=== PATIENT | male | born 1975 | race Caucasian/White ===

== ENCOUNTER 2016-07-06 07:26 | Emergency (ER) | payer MEDICAID ==
[2016-07-06 07:32] VITALS: RESP 18; TEMP 98; O2SAT 99
[2016-07-06] MEDS ORDERED: Sodium Chloride 0.9% 1,000 ML IV STA (07:50)
--- NOTE | 2016-07-06 08:03 | ED PDOC ---
HPI: General Adult Time Seen by Provider: 07/06/16 07:37 Chief Complaint (Nursing): Flu-like Symptoms History Per: Patient History/Exam Limitations: no limitations Onset/Duration Of Symptoms: Hrs Current Symptoms Are (Timing): Still Present Severity: Mild Additional Complaint(s): 40-year-old male, PMHx includes Diabetes (on Glucophage), presents to the emergency department with complaints of body aches, sore throat, nausea, nasal congestion and rhinorrhea x2 days. Patient states sick contacts at home are children. Denies fever, vomiting, diarrhea, shortness of breath, or chest pain. No other complaints at this time. No vision changes, abd pain, headaches, dizziness. Past Medical History Reviewed: Historical Data, Nursing Documentation, Vital Signs Vital Signs: Last Vital Signs Temp 98.0 F 07/06/16 07:31 Pulse 96 H 07/06/16 07:31 Resp 18 07/06/16 07:31 BP 143/87 07/06/16 07:31 Pulse Ox 99 07/06/16 08:15 - Medical History PMH: Diabetes (Type II), HTN, Hypercholesterolemia - Family History Family History: States: Unknown Family Hx - Living Arrangements Living Arrangements: With Family - Social History Current smoker - smoking cessation education provided: No Alcohol: None Drugs: Denies - Immunization History Hx Tetanus Toxoid Vaccination: No Hx Influenza Vaccination: No Hx Pneumococcal Vaccination: No - Home Medications Home Medications: Ambulatory Orders Medication Instructions Recorded Oseltamivir Phosphate [Tamiflu] 75 mg PO BID #10 cap 07/08/14 Ciprofloxacin HCl/Dexameth 4 drop AD BID #1 bottle 06/02/15 [Ciprodex Otic Suspension] - Allergies Allergies/Adverse Reactions: Allergies Allergy/AdvReac Type Severity Reaction Status Date / Time No Known Allergies Allergy Verified 06/02/15 19:01 Review of Systems ROS Statement: Except As Marked, All Systems Reviewed And Found Negative Constitutional: Negative for: Fever ENT: Positive for: Nose Discharge, Throat Pain Cardiovascular: Negative for: Chest Pain, Palpitations Respiratory: Negative for: Cough, Shortness of Breath Gastrointestinal: Positive for: Nausea. Negative for: Vomiting Musculoskeletal: Positive for: Other (bodyaches). Negative for: Back Pain Skin: Negative for: Rash Neurological: Negative for: Weakness, Numbness, Headache, Dizziness Physical Exam - Reviewed Nursing Documentation Reviewed: Yes Vital Signs Reviewed: Yes - Physical Exam Appears: Positive for: Non-toxic, No Acute Distress Head Exam: Positive for: ATRAUMATIC, NORMOCEPHALIC Skin: Positive for: Warm, Dry. Negative for: Rash Eye Exam: Positive for: Normal appearance, EOMI, PERRL ENT: Positive for: Nasal Congestion. Negative for: Pharyngeal Erythema, Tonsillar Exudate, Tonsillar Swelling Neck: Positive for: Normal, Painless ROM, Supple Cardiovascular/Chest: Positive for: Regular Rate, Rhythm. Negative for: Edema Respiratory: Positive for: Normal Breath Sounds. Negative for: Accessory Muscle Use Gastrointestinal/Abdominal: Positive for: Normal Exam, Bowel Sounds, Soft. Negative for: Tenderness Back: Positive for: Normal Inspection. Negative for: L CVA Tenderness, R CVA Tenderness Extremity: Positive for: Normal ROM. Negative for: Tenderness, Pedal Edema, Calf Tenderness Neurologic/Psych: Positive for: Alert, electronics supervisor II-XII, Oriented - Laboratory Results Result Diagrams: 07/06/16 08:22 07/06/16 08:22 Interpretation Of Abn Labs: 316 glucose, mild elevated wbc - ECG O2 Sat by Pulse Oximetry: 99 Pulse Ox Interpretation: Normal - Progress ED Course And Treament: 1040: Stable. AAOx3. Pain free. FU with pcp. Hyperglycemia, likely some correction with fluids. URI. Medical Decision Making Medical Decision Making: Impression body aches, nausea, sore throat, rhinorrhea and leg cramping. Plan * CMP, Lipase * CBC * IVF, Toradol, Zofran * Influenza AB * Rapid Strep * Reassess and Disposition Scribe Attestation: Documented by Ebonie Hollins, acting as a scribe for Harmeet Salas MD Provider Scribe Attestation: All medical record entries made by the Scribe were at my direction and personally dictated by me. I have reviewed the chart and agree that the record accurately reflects my personal performance of the history, physical exam, medical decision making, and the department course for this patient. I have also personally directed, reviewed, and agree with the discharge instructions and disposition. Disposition - Clinical Impression Clinical Impression: Hyperglycemia, URI (upper respiratory infection) - Patient ED Disposition Is Patient to be Admitted: No Counseled Patient/Family Regarding: Studies Performed, Diagnosis, Need For Followup - Disposition Referrals: [facility] [Outside] - 07/07/16 Disposition: Routine/Home Disposition Time: 10:41 Condition: STABLE Additional Instructions: Return if not better in 3 days. Instructions: Upper Respiratory Infection (ED), Diabetic Hyperglycemia (ED) Forms: [facility] ED School/Work Excuse
[2016-07-06 08:44] LABS: BASO % 0.2 % (0.0-2.0); EOS # 0.4 K/uL (0.0-0.7); EOS % 3.1 % (0.0-4.0); HEMATOCRIT 40.4 % (35.0-51.0); LYMPH # 3.2 K/uL (1.0-4.3); LYMPH % 25.7 % (20.0-40.0); MEAN CELL VOLUME 85.2 fl (80.0-94.0); MEAN CORPUSCULAR HEMOGLOBIN 29.7 pg (27.0-31.0); MEAN CORPUSCULAR HGB CONC 34.9 g/dL (33.0-37.0); MEAN PLATELET VOLUME 9.4 fl (7.2-11.7); MONO # 0.8 K/uL (0.0-0.8); MONO % 6.7 % (0.0-10.0); NEUT # 8.1 K/uL (1.8-7.0); NEUT % 64.3 % (50.0-75.0); RED CELL DISTRIBUTION WIDTH 12.7 % (11.5-14.5); WHITE BLOOD COUNT 12.6 K/uL (4.8-10.8)
[2016-07-06 08:56] LABS: ALB/GLOB RATIO 1.3 (1.0-2.1); ALKALINE PHOSPHATASE 135 U/L (38-126); ALT/SGPT 29 U/L (21-72); AST/SGOT 26 U/L (17-59); BILIRUBIN,TOTAL 0.7 mg/dl (0.2-1.3); BLOOD UREA NITROGEN 22 mg/dl (9-20); CALCIUM 9.6 mg/dL (8.4-10.2); CARBON DIOXIDE 26 mmol/L (22-30); CHLORIDE 101 mmol/L (98-107); GFR AFRICAN-AMERICAN > 60; GLUCOSE,RANDOM 316 mg/dL (75-110); LIPASE 83 U/L (23-300); POTASSIUM 4.7 MMOL/L (3.6-5.0); SODIUM 141 mmol/l (132-148); TOTAL PROTEIN 7.3 G/DL (6.3-8.2)
[2016-07-06 11:53] VITALS: BP 140/82; PULSE 89
== END 2016-07-06 11:03 | disposition home or self-care (01) ==
LOC: H.ER 07:26
DX: J06.9 Acute upper respiratory infection, unspecified (principal); E11.65 Type 2 diabetes mellitus with hyperglycemia; E78.00 Pure hypercholesterolemia, unspecified; R11.0 Nausea

== ENCOUNTER 2016-12-02 10:34 | Emergency (ER) | payer MEDICAID ==
[2016-12-02 10:41] VITALS: PULSE 97; TEMP 98; O2SAT 99
[2016-12-02 10:42] VITALS: BMI 34.0
[2016-12-02] MEDS ORDERED: Sodium Chloride 0.9% 1,000 ML IV STA (11:30)
[2016-12-02] MEDS ORDERED: Insulin Regular 100 units/ml IVP ONE (11:30)
[2016-12-02 12:05] LABS: RBC URINE 2 /hpf (0-3); URINE BACTERIA RARE (<OCC); URINE BILIRUBIN NEGATIVE (NEGATIVE); URINE BLOOD NEGATIVE (NEGATIVE); URINE COLOR YELLOW (YELLOW); URINE GLUCOSE (UA) >=500 mg/dL (Normal); URINE KETONE NEGATIVE (NEGATIVE); URINE LEUKOCYTE ESTERASE NEG Leu/uL (Negative); URINE PROTEIN 100 mg/dL (NEGATIVE); URINE UROBILINOGEN 0.2-1.0 mg/dL (0.2-1.0); WBC URINE < 1 /hpf (0-5)
[2016-12-02 12:19] LABS: BASO # 0.1 K/uL (0.0-0.2); BASO % 0.6 % (0.0-2.0); EOS # 0.5 K/uL (0.0-0.7); EOS % 3.5 % (0.0-4.0); HEMATOCRIT 39.6 % (35.0-51.0); LYMPH # 4.1 K/uL (1.0-4.3); LYMPH % 31.2 % (20.0-40.0); MEAN CELL VOLUME 85.3 fl (80.0-94.0); MEAN CORPUSCULAR HEMOGLOBIN 28.8 pg (27.0-31.0); MEAN CORPUSCULAR HGB CONC 33.8 g/dL (33.0-37.0); MEAN PLATELET VOLUME 9.4 fl (7.2-11.7); MONO # 0.8 K/uL (0.0-0.8); MONO % 6.3 % (0.0-10.0); NEUT # 7.8 K/uL (1.8-7.0); NEUT % 58.4 % (50.0-75.0); NRBC % 0.1 % (0.0-0.0); RED CELL DISTRIBUTION WIDTH 12.8 % (11.5-14.5); WHITE BLOOD COUNT 13.3 K/uL (4.8-10.8)
[2016-12-02 12:33] LABS: ALB/GLOB RATIO 1.5 (1.0-2.1); ALKALINE PHOSPHATASE 105 U/L (38-126); ALT/SGPT 39 U/L (21-72); AST/SGOT 20 U/L (17-59); BILIRUBIN,TOTAL 0.6 mg/dl (0.2-1.3); BLOOD UREA NITROGEN 16 mg/dl (9-20); CALCIUM 9.8 mg/dL (8.4-10.2); CARBON DIOXIDE 24 mmol/L (22-30); CHLORIDE 99 mmol/L (98-107); GFR AFRICAN-AMERICAN > 60; GLUCOSE,RANDOM 287 mg/dL (75-110); POTASSIUM 4.4 MMOL/L (3.6-5.0); SODIUM 135 mmol/l (132-148); TOTAL PROTEIN 7.7 G/DL (6.3-8.2)
--- NOTE | 2016-12-02 14:12 | ED PDOC ---
Lower Extremity Pain/Injury Time Seen by Provider: 12/02/16 11:30 Chief Complaint (Nursing): Lower Extremity Problem/Injury Chief Complaint (Provider): Bilateral foot pain History Per: Patient History/Exam Limitations: no limitations Onset/Duration Of Symptoms: Hrs Additional Complaint(s): Patient is a 42 y/o male with a past medical history of diabetes presenting to the emergency department for elevated blood sugar that was noted during his employment physical this morning and is here for evaluation. Reports taking metformin three times a day but is unaware of the dose. Also complains of chronic bilateral leg pain ongoing for months that is worse when lying down. Denies history of diabetic foot infections, surgical history, smoking, or other complaints. PCP: none provided. Past Medical History Reviewed: Historical Data, Nursing Documentation, Vital Signs Vital Signs: Last Vital Signs Temp 98 F 12/02/16 10:40 Pulse 97 H 12/02/16 10:40 Resp 16 12/02/16 10:40 BP 162/94 H 12/02/16 10:40 Pulse Ox 99 12/02/16 10:40 - Medical History PMH: Diabetes (Type II), HTN, Hypercholesterolemia - Surgical History Surgical History: No Surg Hx - Family History Family History: States: Unknown Family Hx - Social History Current smoker - smoking cessation education provided: No Ex-Smoker (has not smoked in the last 12 months): No Alcohol: None Drugs: Denies - Immunization History Hx Tetanus Toxoid Vaccination: No Hx Influenza Vaccination: No Hx Pneumococcal Vaccination: No - Home Medications Home Medications: Ambulatory Orders Medication Instructions Recorded Oseltamivir Phosphate [Tamiflu] 75 mg PO BID #10 cap 07/08/14 Ciprofloxacin HCl/Dexameth 4 drop AD BID #1 bottle 06/02/15 [Ciprodex Otic Suspension] metFORMIN [glucOPHAGE] 850 mg PO BID #20 tab 12/02/16 - Allergies Allergies/Adverse Reactions: Allergies Allergy/AdvReac Type Severity Reaction Status Date / Time No Known Allergies Allergy Verified 06/02/15 19:01 Review of Systems ROS Statement: Except As Marked, All Systems Reviewed And Found Negative Musculoskeletal: Positive for: Leg Pain (bilateral) Physical Exam - Reviewed Nursing Documentation Reviewed: Yes Vital Signs Reviewed: Yes - Physical Exam Appears: Positive for: Well, Non-toxic, No Acute Distress Head Exam: Positive for: ATRAUMATIC, NORMAL INSPECTION, NORMOCEPHALIC Skin: Positive for: Normal Color, Warm, Dry Eye Exam: Positive for: Normal appearance Neck: Positive for: Normal, Painless ROM, Supple Cardiovascular/Chest: Positive for: Regular Rate, Rhythm. Negative for: Murmur Respiratory: Positive for: Normal Breath Sounds. Negative for: Accessory Muscle Use, Respiratory Distress Pulses-Dorsalis Pedis (L): 2+ Pulses-Dorsalis Pedis (R): 2+ Gastrointestinal/Abdominal: Positive for: Normal Exam, Soft. Negative for: Tenderness Extremity: Positive for: Normal ROM (of bilateral lower extremities with good nail hygiene). Negative for: Pedal Edema, Swelling Neurologic/Psych: Positive for: Alert, Oriented (x3). Negative for: Motor/ Sensory Deficits - Laboratory Results Result Diagrams: 12/02/16 12:00 12/02/16 12:00 - ECG O2 Sat by Pulse Oximetry: 99 (RA) Pulse Ox Interpretation: Normal Medical Decision Making Medical Decision Making: Time: 11:30 Initial impression: Hyperglycemia. Initial plan: Humulin 4 units IVP Normal Saline 1 L IV Glucose, Blood, POC Reevaluation 14:00 In response to fluid and insulin treatment, patient's glucose level has improved. Scribe Attestation: Documented by Kemi Batista, acting as a scribe for Erasmo Herrera DO. Provider Scribe Attestation: All medical record entries made by the Scribe were at my direction and personally dictated by me. I have reviewed the chart and agree that the record accurately reflects my personal performance of the history, physical exam, medical decision making, and the department course for this patient. I have also personally directed, reviewed, and agree with the discharge instructions and disposition. Disposition - Clinical Impression Clinical Impression: Hyperglycemia, Neuropathy - Disposition Condition: STABLE Additional Instructions: See your doctor for further testing. Return to ER for any new or worsening symptoms. Prescriptions: metFORMIN [glucOPHAGE] 850 mg PO BID #20 tab Instructions: Diabetic Neuropathy (ED), Diabetic Hyperglycemia (ED) Forms: [employer] ([place]i)
[2016-12-02 14:44] VITALS: BP 141/76; RESP 18
== END 2016-12-02 14:20 | disposition home or self-care (01) ==
LOC: H.ER 10:34
DX: E11.649 Type 2 diabetes mellitus with hypoglycemia without coma (principal); G90.09 Other idiopathic peripheral autonomic neuropathy
CPT/HCPCS: 80053; 81003; 82948; 85025; 96361; 96374; 99284; J7040

== ENCOUNTER 2017-04-13 14:31 | Emergency (ER) | payer MEDICAID ==
[2017-04-13 14:31] VITALS: BMI 34.0
[2017-04-13 15:45] VITALS: RESP 18
--- NOTE | 2017-04-13 15:46 | ED PDOC ---
HPI: CCC, URI, Sore Throat Time Seen by Provider: 04/13/17 15:40 Chief Complaint (Nursing): Flu-like Symptoms Chief Complaint (Provider): Flu-like Symptoms History Per: Patient History/Exam Limitations: no limitations Onset/Duration Of Symptoms: Days (x1) Current Symptoms Are (Timing): Still Present Sick Contacts (Context): Family Member(s) (cousin) Additional Complaint(s): 41 y/o male presents to the emergency department complaining of a cough with associated fever and body aches, onset this morning. No vomiting or diarrhea. Positive sick contact in the patients cousin, who has similar symptoms. Patient denies taking any medications for symptom relief prior to arrival. PMD: Dr. Shaik Kaur Past Medical History Reviewed: Historical Data, Nursing Documentation, Vital Signs Vital Signs: Last Vital Signs Temp 102.1 F H 04/13/17 17:25 Pulse 100 H 04/13/17 17:25 Resp 18 04/13/17 17:25 BP 126/72 04/13/17 17:25 Pulse Ox 98 04/13/17 17:25 - Medical History PMH: Diabetes (Type II), HTN, Hypercholesterolemia - Family History Family History: States: Unknown Family Hx - Immunization History Hx Tetanus Toxoid Vaccination: No Hx Influenza Vaccination: No Hx Pneumococcal Vaccination: No - Home Medications Home Medications: Ambulatory Orders Medication Instructions Recorded Oseltamivir Phosphate [Tamiflu] 75 mg PO BID #10 cap 07/08/14 Ciprofloxacin HCl/Dexameth 4 drop AD BID #1 bottle 06/02/15 [Ciprodex Otic Suspension] metFORMIN [glucOPHAGE] 850 mg PO BID #20 tab 12/02/16 Acetaminophen [Acetaminophen Extra 2 tab PO Q6 PRN #24 tablet 04/13/17 Strength] Ibuprofen [Motrin Tab] 800 mg PO Q8 PRN #21 tab 04/13/17 Oseltamivir Phosphate [Tamiflu] 75 mg PO BID #9 capsule 04/13/17 - Allergies Allergies/Adverse Reactions: Allergies Allergy/AdvReac Type Severity Reaction Status Date / Time No Known Allergies Allergy Verified 06/02/15 19:01 Review of Systems ROS Statement: Except As Marked, All Systems Reviewed And Found Negative Constitutional: Positive for: Fever, Other (body aches) Respiratory: Positive for: Cough. Negative for: Shortness of Breath Gastrointestinal: Negative for: Vomiting, Diarrhea Physical Exam - Reviewed Nursing Documentation Reviewed: Yes Vital Signs Reviewed: Yes - Physical Exam Appears: Positive for: Non-toxic, No Acute Distress Head Exam: Positive for: ATRAUMATIC, NORMAL INSPECTION, NORMOCEPHALIC Skin: Positive for: Normal Color, Warm, Dry Eye Exam: Positive for: EOMI, Normal appearance, PERRL ENT: Positive for: Normal ENT Inspection Neck: Positive for: Normal, Painless ROM Cardiovascular/Chest: Positive for: Regular Rate, Rhythm. Negative for: Murmur Respiratory: Positive for: Normal Breath Sounds. Negative for: Accessory Muscle Use, Wheezing, Respiratory Distress Neurologic/Psych: Positive for: Alert, Oriented - Progress ED Course And Treament: TEMP 102 RECHECK MOTRIN 800MG REPEAT TEMP 100.2 PRIOR TO D/C Medical Decision Making Medical Decision Making: Initial Impression: 41 y/o male with flu-like symptoms Time: 15:42 Initial Plan: * Tylenol 975 mg PO * Tamiflu 75 mg PO Scribe Attestation: Documented by Chetna Buck, acting as a scribe for Fred Ho PA-C Provider Scribe Attestation: All medical record entries made by the Scribe were at my direction and personally dictated by me. I have reviewed the chart and agree that the record accurately reflects my personal performance of the history, physical exam, medical decision making, and the department course for this patient. I have also personally directed, reviewed, and agree with the discharge instructions and disposition. Disposition - Clinical Impression Clinical Impression: Influenza - Patient ED Disposition Is Patient to be Admitted: No - Disposition Disposition: Routine/Home Disposition Time: 18:10 Condition: FAIR Prescriptions: Acetaminophen [Acetaminophen Extra Strength] 2 tab PO Q6 PRN #24 tablet PRN Reason: Fever >100.4 F Ibuprofen [Motrin Tab] 800 mg PO Q8 PRN #21 tab PRN Reason: Fever >100.4 F Oseltamivir Phosphate [Tamiflu] 75 mg PO BID #9 capsule Instructions: Influenza (ED) Forms: [facility] ([place]i), [facility] ED School/Work Excuse
[2017-04-13 19:04] VITALS: BP 120/70; PULSE 95; TEMP 100.1; O2SAT 99
== END 2017-04-13 19:06 | disposition home or self-care (01) ==
LOC: H.ER 14:31
DX: J11.1 Influenza due to unidentified influenza virus with other respiratory manifestations (principal); E11.9 Type 2 diabetes mellitus without complications; Z79.84 Long term (current) use of oral hypoglycemic drugs; E78.00 Pure hypercholesterolemia, unspecified; I10 Essential (primary) hypertension